=== PATIENT | male | born 1955 | race Caucasian/White ===

== ENCOUNTER 2017-08-16 08:56 | Day surgery (SDC) | payer MEDICARE, BC ==
[~2017-08-16 08:56] MED LIST: "\\\"STATIN\\\""; ACET325 PO; ATOR10; BISA5EC PO; COLE625 PO; CRUTCH2 USE; CYCL10 PO; ERYT.5TO RIGHTEYE; EZET10 PO; GABA300 PO; HYDACE5 PO; HYDMOR4; HYDMOR4 PO; LISI5; LISI5 PO; LORA.5 PO; Lisinopril2.5 MG; METF500; METF850 PO; NORT25 PO; Norco 5-325 Ta1 EACH PO; VICODIN 5-3001 EACH; [UNRECOGNIZED DRUG - REMARK]
== END 2017-08-16 22:44 | disposition home or self-care (01) ==
LOC: RAD 08:56 → CT 10:00 → RAD 22:44
DX: M77.9 Enthesopathy, unspecified (principal); Z98.1 Arthrodesis status; M54.2 Cervicalgia
CPT/HCPCS: 62302; 72126; Q9967

== ENCOUNTER → 2019-04-25 | Outpatient (CLI) | payer MEDICARE, BC | END | disposition home or self-care (01) | LOC: LAB 07:00 → LAB SHORT 07:00 | DX: K27.7 Chronic peptic ulcer, site unspecified, without hemorrhage or perforation (principal) | CPT/HCPCS: 87338 ==

== ENCOUNTER 2019-07-17 08:50 | Day surgery (SDC) | payer MEDICARE, BC ==
--- NOTE | 2019-07-17 11:46 | NUR ---
07/17/19 1146 Rachel Graves PT WITH SMALL AMOUNT OF EMESIS DURING PROCEDURE, SUCTIONED SMALL AMOUNT OF CLEAR FLUID. O2 SATS DOWN TO 87-88%, JAW THRUST PERFORMED, SATS INCREASE TO 91% AND REMAIN THERE FOR REMAINDER OF PROCEDURE. PT AWAKENS AND IS COUGHING, O2 SATS 98%. PT BROUGHT TO SDU, STATES HE IS HAVING TROUBLE BREATHING, O2 SATS 99%, MD NOTIFIED. ORDERS DUONEB, AND INSTRUCTS RN TO FOLLOW ASPIRATION PROTOCOL. DUONEB ADMINISTERED, PT REPORTS SLIGHT IMPROVEMENT IN SOB. O2 SATS 100% WHILE ON DUUNEB, REMAIN AT 98-99% AFTERWARDS. BROUGHT TO ROOM, IN TO EXPLAIN RESULTS OF PROCEDURE, AND DISCUSS SOB. DR. FINE IN TO DISCUSS CASE WITH MD. ORDERS INCENTIVE SPIROMETRY TO BE SENT HOME WITH PATIENT, NO OTHER ORDERS AT THIS TIME. PT REPORTS IMPROVEMENT IN SOB, APPEARS TTO BE IN LESS ACUTE DISTRESS. WILL CONTINUE TO MONITOR.
[2019-07-17] MEDS ORDERED: Glucotrol5 MG PO (20:44)
[2019-07-17] MEDS ORDERED: OMEPRAZOLE20 MG PO (22:18)
[2019-07-18] MEDS ORDERED: MELA3 PO (00:30)
[2019-07-18] MEDS ORDERED: GABA300 PO (00:30)
== END 2019-07-17 12:00 | disposition home or self-care (01) ==
LOC: ORSCSDS 08:50
PROVIDERS: Student in an Organized Health Care Education/Training Program
PROC: 0DB68ZX Excision of Stomach, Via Natural or Artificial Opening Endoscopic, Diagnostic (ICD-10-PCS; principal; 2019-07-17 10:45)
PROC: 0DB48ZX Excision of Esophagogastric Junction, Via Natural or Artificial Opening Endoscopic, Diagnostic (ICD-10-PCS; principal; 2019-07-17 10:45)
PROC: 0DB88ZX Excision of Small Intestine, Via Natural or Artificial Opening Endoscopic, Diagnostic (ICD-10-PCS; principal; 2019-07-17 10:45)
DX: R10.13 Epigastric pain (principal); K29.80 Duodenitis without bleeding; K29.70 Gastritis, unspecified, without bleeding; K44.9 Diaphragmatic hernia without obstruction or gangrene; Z87.11 Personal history of peptic ulcer disease; E11.9 Type 2 diabetes mellitus without complications; I10 Essential (primary) hypertension; Z79.891 Long term (current) use of opiate analgesic; B19.20 Unspecified viral hepatitis C without hepatic coma; Z79.84 Long term (current) use of oral hypoglycemic drugs; Z79.899 Other long term (current) drug therapy
CPT/HCPCS: 82947; 88305; 88342; J2405; J7120

== ENCOUNTER 2019-07-17 17:10 | Inpatient (IN) | payer MEDICARE, BC ==
[~2019-07-17] VITALS: Ht 177.8 cm; Wt 85.5 kg
[2019-07-17 18:03] LABS: Hematocrit 46.1 % (37.0-53.0); Hemoglobin 15.7 g/dL (13.5-17.5); Mean Corpuscular HGB 31.2 pg (26.0-34.0); Mean Corpuscular HGB Conc 34.1 g/dL (31.5-36.5); Mean Corpuscular Volume 92 fL (80-100); Mean Platelet Volume 9.1 fL (9.1-12.4); Platelet Count 152 K/mm3 (150-400); RDW Standard Deviation 40.7 fL (35.1-46.3); Red Blood Cell Count 5.04 M/mm3 (4.30-5.90); White Blood Cell Count 12.53 K/mm3 (4.00-11.30)
[2019-07-17 18:17] LABS: Alanine Aminotransfer (ALT/SGP 33 U/L (12-78); Albumin, Blood 4.2 g/dL (3.4-5.0); Albumin/Globulin Ratio 1.2 (0.8-1.8); Alk Phos 65 U/L (50-136); Anion Gap 4 mmol/L (6-16); Aspartate Aminotrans (AST/SGOT 24 U/L (12-37); Blood Urea Nitrogen 15 mg/dL (8-24); CO2, Blood 25 mmol/L (21-32); Calcium, Blood 8.8 mg/dL (8.5-10.1); Chloride, Blood 106 mmol/L (98-108); Creatinine, Blood 0.79 mg/dL (0.60-1.20); Globulin, Blood 3.4 g/dL (2.2-4.0); Glomerular Filtration Rate >60 (60-); Glucose, Blood 207 mg/dL (70-99); Potassium, Blood 3.9 mmol/L (3.5-5.5); Sodium, Blood 135 mmol/L (136-145); Total Protein, Blood 7.6 g/dL (6.4-8.2)
[2019-07-17 18:22] LABS: International Normalized Ratio 1.03
[2019-07-17 18:25] LABS: BAND PERCENT MAN 2 % (0-8); BASOPHILS PERCENT MAN 0 % (0-2); EOSINOPHILS ABSOLUTE MAN 0.12 K/mm3 (0.00-0.68); EOSINOPHILS PERCENT MAN 1 % (0-6); LYMPHOCYTES ABSOLUTE MAN 0.37 K/mm3 (0.84-5.20); LYMPHOCYTES PERCENT MAN 3 % (21-46); MONOCYTES ABSOLUTE MAN 0.62 K/mm3 (0.16-1.47); MONOCYTES PERCENT MAN 5 % (4-13); SEG NEUTROPHILS PERCENT MAN 89 % (41-73); TOTAL CELLS COUNTED 100
[2019-07-17 18:37] LABS: Source, Urine Catheter
[2019-07-17 18:45] LABS: Bilirubin, Urine Neg (Neg); Blood, Urine Neg (Neg); Glucose Qualitative, Urine 3+ (Neg); Ketones, Urine 1+ (Neg); Leukocyte Esterase, Urine Neg (Neg); Nitrite, Urine Neg (Neg); Protein, Urine 1+ (Neg); Specific Gravity, Urine 1.015 (1.003-1.022); Urobilinogen, Urine NORM (Normal)
[2019-07-17 18:50] LABS: Appearance, Urine Clear (Clear); Color, Urine Yellow (P-Yellow)
[2019-07-17] MEDS ORDERED: Glucotrol5 MG PO (20:44)
[2019-07-17] MEDS ORDERED: OMEPRAZOLE20 MG PO (22:18)
[2019-07-18] MEDS ORDERED: GABA300 PO (00:30)
[2019-07-18] MEDS ORDERED: MELA3 PO (00:30)
[2019-07-18 01:28] LABS: BASOPHILS ABSOLUTE AUTO 0.04 K/mm3 (0.00-0.23); BASOPHILS PERCENT AUTO 0 % (0-2); EOSINOPHILS ABSOLUTE AUTO 0.07 K/mm3 (0.00-0.68); EOSINOPHILS PERCENT AUTO 1 % (0-6); Hematocrit 40.7 % (37.0-53.0); Hemoglobin 13.6 g/dL (13.5-17.5); IMMATURE GRAN ABSOLUTE AUTO 0.03 K/mm3 (0.00-0.10); IMMATURE GRAN PERCENT AUTO 0 % (0-1); LYMPHOCYTES ABSOLUTE AUTO 0.82 K/mm3 (0.84-5.20); LYMPHOCYTES PERCENT AUTO 7 % (21-46); MONOCYTES ABSOLUTE AUTO 0.97 K/mm3 (0.16-1.47); MONOCYTES PERCENT AUTO 8 % (4-13); Mean Corpuscular HGB 30.6 pg (26.0-34.0); Mean Corpuscular HGB Conc 33.4 g/dL (31.5-36.5); Mean Corpuscular Volume 92 fL (80-100); NEUTROPHILS ABSOLUTE AUTO 10.51 K/mm3 (1.96-9.15); NEUTROPHILS PERCENT AUTO 85 % (41-73); Platelet Count 118 K/mm3 (150-400); RDW Standard Deviation 40.4 fL (35.1-46.3); Red Blood Cell Count 4.44 M/mm3 (4.30-5.90); White Blood Cell Count 12.44 K/mm3 (4.00-11.30)
[2019-07-18 01:44] LABS: Anion Gap 3 mmol/L (6-16); Blood Urea Nitrogen 14 mg/dL (8-24); Bun/Creatinine Ratio 18.3 (12.0-20.0); CO2, Blood 28 mmol/L (21-32); Calcium, Blood 8.2 mg/dL (8.5-10.1); Chloride, Blood 108 mmol/L (98-108); Creatinine, Blood 0.77 mg/dL (0.60-1.20); Glomerular Filtration Rate >60 (60-); Glucose, Blood 151 mg/dL (70-99); Potassium, Blood 3.9 mmol/L (3.5-5.5); Sodium, Blood 139 mmol/L (136-145)
--- NOTE | 2019-07-18 05:07 | NUR ---
LOCATION DIRECTOR SUMMARY NEW ADMIT FROM THE ED TONIGHT. PT AAOX4 AND PLEASANT. STANDBY ASSIST BUT IS VERY STABLE ON HIS FEET. PT RECIEVED IV FLAGYL AND ROCEPHIN ALONG WITH MAINTENANCE LR'S. PT NPO DUE TO ASPIRATION EARLIER YESTERDAY DURING UPPER ENDO. PT TO HAVE ST EVAL LATER TODAY. LOW GRADE TEMPS AT TIMES 99-100. VSS OTHERWISE. WILL CONTINUE TO MONITOR.
--- NOTE | 2019-07-18 06:14 | NUR ---
Patient gave this student permission to help take of of him today 07/18/2019 from [phone].
--- NOTE | 2019-07-18 18:32 | NUR ---
PT IS A/OX3, PLEASANT AND COOPERATIVE, THE PT IS UP IND IN HIS ROOM, TODAY THE PT REPORETED THAT HE FELT HE WAS BREATHING EASIER TODAY, PT DENIED ANY PAIN, PT ATE LUNCH AND DINNER WITHOUT INCIDENT, NO OTHER CHANGES NOTICED THIS SHIFT, CALL LIGHT IN REACH WILL CONTINUE TO MONITOR AND ASSESS FOR CHANGES
--- NOTE | 2019-07-19 05:49 | NUR ---
SAIL FINISHER HAND SUMMARY NO ACUTE CHANGES THIS SHIFT. PT AAOX4 AND INDEPENDENT IN ROOM. DENIES PAIN, SOB, N/V. LUNG SOUNDS SEEM IMPROVED COMPARED TO YESTERDAY WITH ONLY FINE EXP WHEEZES NOTED. CONTINUED ON IV ABX PER EMAR. VSS, WILL CONTINUE TO MONITOR.
--- NOTE | 2019-07-19 16:33 | NUR ---
pt is a/ox3, pleasant and cooperative, the pt is upind in his room, the pt reports breathing easier today compared to yesterday, pt denies any pain, the pt has been up walking in the [place] today, the pts was in to see him today, call light in reach, will continue to monitor and assess for changes
--- NOTE | 2019-07-20 01:02 | NUR ---
BEGINNING SHIFT SUMMARY ASSUMED CARE OF PT AT 1900. PT IS A/O X4. HEART SOUNDS REGULAR, L LUNG SOUNDS HAVE FINE CRACKLES, PT STATES ITS HARD FOR HIM TO TAKE A DEEP BREATH BUT DENIES SOB. PT DENIES PROBLEMS USING HE RESTROOM. CALL LIGHT IN REACH, BED IN LOWEST POSTIN, WILL CONTINUE TO MONITOR.
[2019-07-20 05:01] LABS: BASOPHILS ABSOLUTE AUTO 0.03 K/mm3 (0.00-0.23); BASOPHILS PERCENT AUTO 1 % (0-2); EOSINOPHILS ABSOLUTE AUTO 0.17 K/mm3 (0.00-0.68); EOSINOPHILS PERCENT AUTO 3 % (0-6); Hematocrit 39.4 % (37.0-53.0); Hemoglobin 13.2 g/dL (13.5-17.5); IMMATURE GRAN ABSOLUTE AUTO 0.02 K/mm3 (0.00-0.10); IMMATURE GRAN PERCENT AUTO 0 % (0-1); LYMPHOCYTES ABSOLUTE AUTO 0.77 K/mm3 (0.84-5.20); LYMPHOCYTES PERCENT AUTO 13 % (21-46); MONOCYTES ABSOLUTE AUTO 0.67 K/mm3 (0.16-1.47); MONOCYTES PERCENT AUTO 12 % (4-13); Mean Corpuscular HGB 30.9 pg (26.0-34.0); Mean Corpuscular HGB Conc 33.5 g/dL (31.5-36.5); Mean Corpuscular Volume 92 fL (80-100); Mean Platelet Volume 9.3 fL (9.1-12.4); NEUTROPHILS ABSOLUTE AUTO 4.17 K/mm3 (1.96-9.15); NEUTROPHILS PERCENT AUTO 72 % (41-73); Platelet Count 132 K/mm3 (150-400); RDW Coefficient Variation 12.1 % (11.7-14.2); RDW Standard Deviation 40.9 fL (35.1-46.3); Red Blood Cell Count 4.27 M/mm3 (4.30-5.90); White Blood Cell Count 5.83 K/mm3 (4.00-11.30)
--- NOTE | 2019-07-20 05:44 | NUR ---
END SHIFT SUMMARY NO ACUTE CHANGES NOTED T/O THE NIGHT. PT STATED THAT HE DID NOT SLEEP WELL BECAUSE OF HIS COUGH AND PEOPLE WAKING HIM UP, HE IS EAGER TO GO HOME AND REST AND MOVE AROUND. PT STATES THAT HIS COUGH IS STILL PRODUCTIVE AND HE STILL FEELS LIKE ITS HARD TO EXPAND HIS LUNGS ALL THE WAY TO TAKE A DEEP BREATH. PT IS AWAITING A REPEAT CXR THIS MORNING. CALL LIGHT IN REACH, BED IN LOWEST POSTION, WILL CONTINUE TO MONITOR UNTIL DAYSHIFT NURSE ARRIVES.
[2019-07-20] MEDS ORDERED: AMOCLA875 PO (16:07)
--- NOTE | 2019-07-20 17:52 | NUR ---
PT DISCHARGED FROM UNIT. LEFT WITH VIA WHEEL CHAIR. IV REMOVED. MEDICATIONS FAXED TO [facility] [place] . DISCUSSED FOLLOW UP APOINTMENT. DISCHARGE INSTRUCTIONS REVIEWED. BELONGINGS RETURNED
== END 2019-07-20 17:00 | disposition home or self-care (01) | DRG 178 ==
LOC: ER 17:10 → MEDS 23:49
PROVIDERS: Family Medicine; Physician Assistant; ADMIT Family Medicine
DX: J69.0 Pneumonitis due to inhalation of food and vomit (principal); E87.1 Hypo-osmolality and hyponatremia; E11.9 Type 2 diabetes mellitus without complications; E78.5 Hyperlipidemia, unspecified; I10 Essential (primary) hypertension; K29.80 Duodenitis without bleeding; Z79.84 Long term (current) use of oral hypoglycemic drugs
CPT/HCPCS: 36415; 71046; 80048; 80053; 82947; 83605; 85025; 85610; 85730; 87040; 87086; 90686; 92610; 93005; 93010; 94644; 94667; 94760; 96360; 99285-25; A9270; C9113; G0008; J0696; J1650; J7030; J7040; J7120

== ENCOUNTER 2020-08-22 07:52 | Day surgery (SDC) | payer MEDICARE, BC ==
[~2020-08-22] VITALS: Ht 177.8 cm; Wt 86.2 kg
[~2020-08-22 07:52] MED LIST changes: +AMOCLA875 PO; +ATOR10 PO; +Glucotrol5 MG PO; +MELA3 PO; +Norco 10-325 T1 EACH PO; +OMEPRAZOLE20 MG PO
[2020-09-03] MEDS ORDERED: LISI5 PO (09:31)
[2020-09-03] MEDS ORDERED: GABA300 PO (09:31)
[2020-09-23] MEDS ORDERED: HYDR1TAB94 PO (09:29)
[2020-09-24] MEDS ORDERED: OXYC5 PO (08:54)
[2020-09-24] MEDS ORDERED: ASPIR 8181 MG PO (08:54)
[2020-09-24] MEDS ORDERED: ACET500 PO (08:54)
== END 2020-08-22 10:12 | disposition home or self-care (01) ==
LOC: ORSCSDS 07:52
PROVIDERS: Surgery
PROC: 0DJD8ZZ Inspection of Lower Intestinal Tract, Via Natural or Artificial Opening Endoscopic (ICD-10-PCS; principal; 2020-08-22 09:15)
DX: Z12.11 Encounter for screening for malignant neoplasm of colon (principal); Z86.010 Personal history of colon polyps; K57.30 Diverticulosis of large intestine without perforation or abscess without bleeding; E11.9 Type 2 diabetes mellitus without complications; Z79.899 Other long term (current) drug therapy
CPT/HCPCS: 82947; J2704; J7120

== ENCOUNTER 2020-09-25 21:44 | Emergency (ER) | payer MEDICARE, BC ==
[~2020-09-25] VITALS: Ht 177.8 cm; Wt 82.5 kg
== END 2020-09-26 00:39 | disposition home or self-care (01) ==
LOC: ER 21:44
DX: R10.30 Lower abdominal pain, unspecified (principal); E11.9 Type 2 diabetes mellitus without complications; E78.00 Pure hypercholesterolemia, unspecified; Z79.82 Long term (current) use of aspirin; Z79.899 Other long term (current) drug therapy; Z88.8 Allergy status to other drugs, medicaments and biological substances
CPT/HCPCS: 74176; 80053; 83690; 85025; 96374; 96375; 99284-25; J2405; J3010; J7030

== ENCOUNTER → 2021-11-17 | Outpatient (CLI) | payer MEDICARE, BC ==
[~2021-11-17] MED LIST changes: +ACET500 PO; +ASPIR 8181 MG PO; +HYDR1TAB94 PO; +OXYC5 PO
== END | disposition home or self-care (01) ==
LOC: LAB 12:56 → LAB SHORT 12:56
PROVIDERS: Family Medicine
DX: G89.4 Chronic pain syndrome (principal); Z79.899 Other long term (current) drug therapy
CPT/HCPCS: G0480

== ENCOUNTER → 2021-12-22 | Outpatient (CLI) | payer MEDICARE, BC | LOC: LAB 09:20 → LAB SHORT 09:20 | PROVIDERS: Family Medicine | DX: G89.4 Chronic pain syndrome (principal); Z79.899 Other long term (current) drug therapy | CPT/HCPCS: G0480 ==

== ENCOUNTER → 2024-03-01 | Outpatient (CLI) | payer MEDICARE | LOC: LAB 17:42 → LAB SHORT 17:42 | DX: L02.01 Cutaneous abscess of face (principal) | CPT/HCPCS: 87070; 87205 ==